=== PATIENT | female | born 1950 | race Caucasian/White ===

== ENCOUNTER 2023-04-16 09:08 | Inpatient (IN) | payer MEDICARE ==
[~2023-04-16] VITALS: Ht 167.6 cm; Wt 92.1 kg
[2023-04-16 10:02] LABS: HEMATOCRIT 31.2 % (35.0-50.0); HEMOGLOBIN 10.2 g/dL (12.0-18.0); MCH 31.3 (27-36); MCHC 32.6 g/dl (30-36); PLATELET COUNT 372 K/uL (140-440); RBC 3.25 M/ul (4.3-5.7); RDW 15.3 (10.5-15.0)
[2023-04-16 10:12] LABS: INR 0.96 (0.80-1.30); PROTIME 12.4 Sec (11.2-14.2)
[2023-04-16 10:14] LABS: PARTIAL THROMBOPLASTIN TIME 23.3 Sec (22.9-41.3)
[2023-04-16 10:16] LABS: ALBUMIN 1.8 g/dL (3.4-5.0); ALBUMIN/GLOBULIN RATIO 0.46 (1.1-2.4); ANION GAP 11.7 (7-21); BILIRUBIN, TOTAL 0.3 ng/dL (0.2-1.0); CALCIUM 8.4 mg/dL (8.5-10.1); POTASSIUM 3.7 mmol/L (3.5-5.1); PROTEIN, TOTAL 5.7 g/dL (6.4-8.2)
[2023-04-16] MEDS ORDERED: TYLENOL325 MG PO (10:22)
[2023-04-16] MEDS ORDERED: PROBIOTIC GOLD1 EACH PO (10:23)
[2023-04-16] MEDS ORDERED: ADULT ASPIRIN R81 MG PO (10:23)
[2023-04-16] MEDS ORDERED: BUPRENORPHINE HC2 MG SL (10:24)
[2023-04-16] MEDS ORDERED: BUSPIRONE HCL15 MG PO (10:25)
[2023-04-16 10:26] LABS: LYMPHOCYTES, MANUAL DIFF 34; MONOCYTES, MANUAL DIFF 2; NEUTROPHILS, MANUAL DIFF 64
[2023-04-16] MEDS ORDERED: FAMOTIDINE20 MG PO (10:26)
[2023-04-16] MEDS ORDERED: CHLORTHALIDONE25 MG PO (10:26)
[2023-04-16] MEDS ORDERED: DULOXETINE HCL60 MG PO (10:26)
[2023-04-16] MEDS ORDERED: HUMALOG KW200 UNIT/1 SUB-Q (10:27)
[2023-04-16] MEDS ORDERED: FEOSOL325 MG PO (10:27)
[2023-04-16] MEDS ORDERED: HYDROXYZINE HCL25 MG PO (10:28)
[2023-04-16] MEDS ORDERED: REZVOGLAR100 UNIT/1 SUB-Q (10:29)
[2023-04-16] MEDS ORDERED: LEVOTHYROXINE50 MC1 (10:29)
[2023-04-16] MEDS ORDERED: COZAAR100 MG PO (10:30)
[2023-04-16] MEDS ORDERED: MIRAPEX0.25 MG PO (10:31)
[2023-04-16] MEDS ORDERED: METOPROLOL TART25 MG PO (10:31)
[2023-04-16] MEDS ORDERED: LYRICA50 MG PO (10:32)
[2023-04-16] MEDS ORDERED: CRESTOR10 MG PO (10:32)
[2023-04-16] MEDS ORDERED: PREDNISONE20 MG PO (10:33)
[2023-04-16 10:44] LABS: ABO B; ANTIBODY SCREEN NEGATIVE; RH POSITIVE
--- OUTSIDE RECORDS SUMMARY | 2023-04-16 11:04 | XMS ---
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 EXiang VISIT COUNT (12 MO.) 2 Koby Michael ([facility]) [address] [facility] [facility] TOTAL 3 NOTE: Visits indicate total known visits. ED/UCC VISIT TRACKING (12 MO.) 04/16/2023 09:09 KATIE Francois TYPE: Emergency COMPLAINT: - BLOODY STOOL 03/31/2023 23:33 Koby STEELE ([facility]) TYPE: Emergency DIAGNOSES: - Disorder of kidney and ureter, unspecified - Other cystitis without hematuria - Sepsis, unspecified organism - Abdominal pain - Back Pain 03/31/2023 16:11 Koby [place] ([facility]) TYPE: Emergency DIAGNOSES: - Wedge compression fracture of T5-T6 vertebra, initial encounter for closed fracture - Back Pain - Fall - Fall; Back Pain INPATIENT VISIT TRACKING (12 MO.) 03/31/2023 23:33 Koby [facility]ON [place] ([facility]) TYPE: Inpatient DIAGNOSES: - Acute cystitis without hematuria - Adjustment disorder with mixed anxiety and depressed mood - Disorder of kidney and ureter, unspecified - Local infection of the skin and subcutaneous tissue, unspecified - Localized edema - Low back pain, unspecified - Other cystitis without hematuria - Restless legs syndrome - Sepsis, unspecified organism - Unspecified mononeuropathy of bilateral lower limbs 07/22/2022 06:48 [facility] TYPE: Gynecology DIAGNOSES: - Intra-abdominal and pelvic swelling, mass and lump, unspecified site [id number]
[2023-04-16 13:35] VITALS: BP 162/63
--- NOTE | 2023-04-16 14:20 | NUR ---
In to assess patient, resting with eyes closed. Respirations even and unlabored. Allowed to rest. Will return to complete assessment at a later time.
--- NOTE | 2023-04-16 16:10 | NUR ---
Pt resting, eyes closed. no s/sx distress on room airIVF infusing, pure wick in place. LE elevated. Barrett just got here from [place].
[2023-04-16 16:18] LABS: HEMATOCRIT 28.1 % (35.0-50.0); HEMOGLOBIN 9.2 g/dL (12.0-18.0); MCH 31.2 (27-36); MCHC 32.6 g/dl (30-36); MCV 95.6 fl (81-99); PLATELET COUNT 322 K/uL (140-440); RBC 2.94 M/ul (4.3-5.7); RDW 15.2 (10.5-15.0)
[2023-04-16 16:37] LABS: BANDS, MANUAL DIFF 12; LYMPHOCYTES, MANUAL DIFF 45; MONOCYTES, MANUAL DIFF 6; NEUTROPHILS, MANUAL DIFF 37
[2023-04-16] MEDS ORDERED: LEVOTHYROXINE50 MCG PO (16:44)
[2023-04-16] MEDS ORDERED: TM-VITE RX T1000 MCG PO (17:02)
[2023-04-16] MEDS ORDERED: CALCIUM 600+D31 EACH PO (17:05)
[2023-04-16] MEDS ORDERED: VITAMIN D21250 MCG PO (17:08)
[2023-04-16] MEDS ORDERED: MAGNESIUM250 M1 PO (17:20)
[2023-04-16] MEDS ORDERED: MILK OF MA400 MG/5 M PO (17:21)
[2023-04-16] MEDS ORDERED: FLEET ENEMA133 ML PR (17:22)
--- NOTE | 2023-04-16 17:25 | NUR ---
medications reconciled using pharmacy records and med list from facility
[2023-04-16 17:39] VITALS: BP 129/66
--- NOTE | 2023-04-16 18:11 | NUR ---
pt more awake, eating, cooperativew with vitals and repositioning in bed. pure wick in place, draining light nathan colored urine. attends in place. echymotic pale looking areas and edema to R hand improved. edema to fingers and L hand still present, lightly dusky colore, much improved. duskiness of knee areas no changes, No changes to edema of LE/pale dusky open areas with scant amount of ss drainage covered with abd earlier, no changes. blue foam dressing from admit not removed. pale edematous toes and scabbed tip of toes no changes. elevated. scabbed area L elbow, no changes. no c/o pain. CBG 100 no coverage needed. IVF infusing w/o problems
[2023-04-16 18:43] VITALS: BP 129/66
--- NOTE | 2023-04-16 19:30 | NUR ---
SHIFT REPORT RECEIVED FROM SHLEBIE AT BEDSIDE, pt INCONTINENT OF BLOODY STOOL-STOOL SAMPLE RECOLLECTED ADN RESENT TO LAB FOR ORDERED C-DIFF ORDER. YUNIOR CARE DONE AND NEW ATTENDS IN PLACE WITH NEW JANETHWICK. BLE ELEVATED IN BED. IV SITE WNL, FLUIDS INFUSING WNL. NO ADDITIONAL NEEDS OR COCNERNS VERBALIZED. WOUNDS NOTED TO BLE, PHOTOS ALREADY IN CHART PER REPORT.
--- NOTE | 2023-04-16 22:10 | NUR ---
son garcia called and asked for pt updated. updated provided and pt made aware of son calling.
[2023-04-16 22:25] VITALS: BP 140/67
--- NOTE | 2023-04-16 22:30 | NUR ---
ASSESSMENT COMPLETE, LUNG SOUNDS CLEAR. pt DENIES DIZZINESS/LIGHTHEADEDNESS. VSS, IV SITE TO RIGHT AC WNL-BRISK BLOOD RETURN NOTED. DRESSINGS TO BLE ALREADY IN PLACE, APPEARS TO BE PACKED WITH GAUZE WITH BLUE FOAM ON TOP OF DRESSING-UNABLE TO REMOVE FOAM DRESSING (OPTILOCK) ADHERED TO SKIN- UNABLE TO REMOVE- ADVERTISING AGENCY MANAGER CHET IN ROOM ( SECOND RN) TO ASSESS. DAYSHIFT RN SHELBIE REINFORCED DRESSING W/ ABD PAD. WOUND CONSULT ALREADY IN PLACE, DISCUSSED WITH ADVERTISING AGENCY MANAGER. CLINICAL JUDGMENT, TO LEAVE DRESSING IN PLACE AND HAVE WOUND CARE ASSESS WOUND BED AND PLACE WOUND CARE ORDERS TOMORROW. PHOTOS ALREADY IN CHART. BRUISES NOTED TO LEFT HIP ALONG WITH DEPENDENT EDEMA. DEPENDENT EDEMA TO BILATERAL HANDS AND FEET. LEFT HAND AND BILATERAL FEET ELEVATED IN BED. ABRASION ALSO NOTED TO LEFT ELBOW-NO DRAINAGE NOTED-END POLISHER. OLD CENTRAL LINE DRESSING TO RIGHT NECK C/D/I-TO REMOVE TOMORROW ON DAYSHIFT.
--- NOTE | 2023-04-16 23:59 | NUR ---
22G IV PLACED IN LAC WITH 3 ATTEMPTS. PT TOLERATED WELL. PRIMARY RN NATHAN IN ROOM AT THIS TIME.
[2023-04-17] VITALS (8 sets, daily range): BP systolic 122–137; BP diastolic 65–81
--- NOTE | 2023-04-17 00:01 | NUR ---
PT INCONTIENT OF BLOODY STOOL, YUNIOR CARE DONE AND NEW PUREWICK IN PLACE. LIANA PERALES IN ROOM TO ATTEMPT TO START SECOND IV pt HERE FOR GI BLEED. CALL LIGHT IN REACH, BED IN LOW POSITION.
--- NOTE | 2023-04-17 03:10 | NUR ---
in room for vs and i&o's, pt incontinent of small amount bloody stool. this rn and insulation cupola charger julio in room and cmopleted sammi care and new purewick in place. pt boosted in bed, hob elevated fro comfort. vss, pt deneis dizziness, lightheadedness. iv sites x2 remains wnl, iv fluids infusing as directed. fresh ice water and warm blankets given per pt request. pt verbalizes attempting to void via purewick, will provide pt privacy. call light in reach.
--- NOTE | 2023-04-17 05:30 | NUR ---
prn nausea medication given-see emar. lab in room for am blood draw. iv sites x2 remains wnl, iv fluids infusing as directed.
[2023-04-17 05:52] LABS: HEMATOCRIT 25.1 % (35.0-50.0); HEMOGLOBIN 8.1 g/dL (12.0-18.0); MCH 30.9 (27-36); MCHC 32.3 g/dl (30-36); MCV 95.8 fl (81-99); PLATELET COUNT 290 K/uL (140-440); RBC 2.62 M/ul (4.3-5.7)
[2023-04-17 06:12] LABS: ALBUMIN 1.4 g/dL (3.4-5.0); ALBUMIN/GLOBULIN RATIO 0.44 (1.1-2.4); ANION GAP 11.1 (7-21); BILIRUBIN, TOTAL 0.3 ng/dL (0.2-1.0); BUN/CREATININE RATIO 30.95 (6.0-28.6); CALCIUM 7.6 mg/dL (8.5-10.1); CREATININE, SERUM 0.84 mg/dL (0.55-1.02); MAGNESIUM 1.9 mg/dL (1.8-2.4); PHOSPHORUS, INORGANIC 3.7 mg/dL (2.5-4.9); POTASSIUM 4.1 mmol/L (3.5-5.1); PROTEIN, TOTAL 4.6 g/dL (6.4-8.2)
[2023-04-17 06:57] LABS: BANDS, MANUAL DIFF 15; BASOPHILS, MANUAL DIFF 1; EOSINOPHILS, MANUAL DIFF 2; LYMPHOCYTES, MANUAL DIFF 24; MONOCYTES, MANUAL DIFF 4; NEUTROPHILS, MANUAL DIFF 54
--- NOTE | 2023-04-17 08:31 | NUR ---
pt alert and orineted, much imrpoved skin color, pinkish, still pale tip s and back of fingers, bilat. edema to L fingers. allevyn dressing applied to L elbow area, scabbed over area, increaed redness compared to yesterdat. Dressing to R former IJ place removed. decreased duskiness knees and below knees area. pale and edematous LE 2+, poor capillary refill, no skin changes to toe coloring. elevated. mid calves abd in place, ss drainage present. has a wound consult. pure wick inplace. CBG 92, no SS coverage needed. IVF infusing RAC, SL LA patent. repositioned and tuirned in bed, am and sammi care done. cooperative. Eating at thist mahnaz, no c/o pain
--- NOTE | 2023-04-17 10:00 | NUR ---
PT MEDICATED WITH TYLENOL PER 11/06 LE PAIN. [facility]IOT WOUND CARE NURSE DOING ASSESSMENTS AND TREATMENT OF LE.
--- NOTE | 2023-04-17 10:32 | NUR ---
PATIENT ALERT AND ORIENTED, SITTING UP IN BED. STATES SHE WAS AT [facility] PRIOR TO ADMISSION. STATES SHE HADN'T HAD ANYTHING DONE THERE. PREVIOUSLY, SHE LIVED IN [place], IN A 2 STORY HOME WITH HER , DEBRA. HER AVBHEPNS-DJ-BFO STOPS IN OCCASIONALLY TO HELP HER AND HER . STATES HER STAIRS ARE "ELECTRIC" SO SHE HAS NO ISSUES USING THEM. HAS A WALKER ON BOTH FLOORS AT HOME AND A SHOWER CHAIR. SHE DOES NOT DRIVE, HER SPOUSE PROVIDES HER WITH TRANSPORTATION. NO FINANCIAL ISSUES OF NOTE. DENIES NEEDS AT HOME AT THIS TIME. INSTRUCTED TO NOTIFY STAFF IF NEEDS ARISE. VERBALIZES UNDERSTANDING.
--- NOTE | 2023-04-17 10:33 | NUR ---
ROUNDS. PT GONE FOR PROCEDURE. PROVIDED PRAYER.
--- NOTE | 2023-04-17 10:48 | NUR ---
LE 0925: THIS RN GOES DOWN TO MED SURG ROOM 109 FOR A WOUND CONSULTS OF BLE AND THE LEFT ELBOW. THE PT REPORTS THAT SHE HAS HAD THE WOUNDS ON HER BLE FOR MONTHS AND THAT THEY WERE PREVIOUSLY TREATED AT [facility]. THE ONLY THING SHE COULD TELL THIS RN ABOUT HER PREIVOUS DRESSINGS IS THAT THEY "DIDN'T STICK" ANYTIME ADHEISVE WAS USED IT WOULD "TAKE HER SKIN OFF." THERE IS A FOUL ODOR COMING FROM THE WOUNDS ON HER BLE. THE DRESSINGS ARE SOMEWHAT STUCK TO HER SKIN AND REQUIRE THE USE OF NORMAL SALINE TO LOOSEN THE ABD PADS OFF HER SKIN ON BLE WOUNDS. WOUND CLEANSER AND DRY GAUZE ARE INITIALLY USED TO CLEAN THE WOUNDS, BUT THIS IS TOLERATED VERY POORLY BY THE PATIENT. THIS RN SWITCHES TO A DEBRISOFT LOLLY TO CLEAN THE AREAS, WHICH PROVES TO BE BETTER IN CLEANING THE AREA AND SLIGHTLY LESS PAINFUL. THE ODOR REMAINS EVEN AFTER CLEANING. PHOTOS AND MEASUREMENTS ARE TAKEN (SEE COMPLEX WOUND ASSESSMENT FOR MORE DETAILS). THE PT REPORTS THAT HER WOUNDS ARE VASCULAR WOUNDS, HOWEVER, THEY ARE MORE CHARACTERISTIC OF LACERATIONS WITH HOW UNIFORM AND LINEAR THEY ARE. RLE LATERAL CALF WOUND: DRESSED WITH HYDROFERA BLUE, AQUACEL AG STRIP, OPTILOCKS, ALL SECURED IN PLACE WITH GAUZE AND TAPE. EDGES HAVE 5% SLOUGH TISSUE AND 5% NECROTIC TISSUE, THE REMAINDER IS RED. RLE MEDIAL CALF WOUND: DRESSED WITH HYDROFERA BLUE, AQUACEL AG STRIP, IODOSORBS ON NECROTIC EDGES, OPTILOCKS, SECURED IN PLACE WITH GAUZE AND TAPE. EDGES HAVE 50% NECROTIC TISSUE, 40% SLOUGH TISSUE, 10% RED/ERRYTHEMA. LLE MEDIAL CALF WOUND: DRESSED WITH HYDROFERAB LUE, AQUACEL AG STRIP, OPTILOCKS, SECURED IN PLACE WITH GAUZE AND TAPE. LEFT ELBOW IS SCABBED OVER. PLACED A GENTLE BORDER OVER THE AREA TO PROTECT IT. THIS PT WOULD GREATLY BENEFIT FROM A SURGICAL CONSULT OF THE RLE MEDIAL CALF WOUND. MED/SURG ASKED TO PUT THE CONSULT IN. THIS RN DISCUSSES THE PT WITH DR. VELASQUEZ, HE IS AGREEABLE TO SEE HER. CULTURE OF THE LLE WOUND IS TAKEN AT 1000. LE 1020: CONSULT IS COMPLETED.
--- NOTE | 2023-04-17 10:58 | NUR ---
CHART FAXED TO [facility] FOR UPDATE OF PATIENT CONDITION.
--- NOTE | 2023-04-17 10:59 | NUR ---
Review: 04/17/2023: [facility] [place] for admission 04/16/2023, pt meets inpatient criteria for Guideline - Gastrointestinal Bleeding, Lower. GL day 1 met on 04/16/2023.
--- NOTE | 2023-04-17 11:16 | NUR ---
ROUNDS. PT APPEARED TO BE SLEEPING. DID NOT DISTURB; PROVIDED SILENT PRAYER; LEFT GUIDEPOST WITH PRAYER CARD AND CONTACT CARD.
--- NOTE | 2023-04-17 11:38 | NUR ---
DR VELASQUEZ ASSESSING PT.
--- NOTE | 2023-04-17 13:21 | NUR ---
awake, no requests, hob elevated. IVF infusing. LE dressing in place, elevated
--- NOTE | 2023-04-17 13:26 | NUR ---
Checked on patient due to instrument repairer for nutrition. Patient states her appetite was not great prior to admission. She states now she can only have water. Surgery likely. It is noted that patient has lower extremity wounds and uses insulin for her diabetes. Patient came from [facility] where she went after her admission at [facility] for a UTI and wound care for her legs. Normally lives at home with . Will continue to monitor patient's nutrition needs while here.
--- NOTE | 2023-04-17 13:48 | NUR ---
OT/PT inroom evaluating pt. Pt had another liquid bm. skin care done. edema and brusing L abd no changes. dresing LE in place, decreaed edema to L hand and LE, Mottled /marbled skin looking hands and LE, pale toes, no chagnes from earlier
--- NOTE | 2023-04-17 15:20 | NUR ---
Sleeping, no distress, IVF infusing. LE elevated, Foot craddle in place. dressing no changes. skin coloring no changes from earlier assessment. pure wick in place
--- NOTE | 2023-04-17 17:31 | NUR ---
Pt currently awake, was talking in phone with . on room air, IVF infusing, 2 IV sites. abd bruised and edematous L side. dusky and mottled hands present, edema to L hand and fingers. edema and mottled legs but better than when admitted LE, pale LE, dressing in place, elevated, edema to feet and toes, plantar area toes bruised, pale, poor circulation. not as tender as before, weak pulses 3+ pitting edema. Pt on clear liquids, tolerating well. CBG 218 at this time, pt aware of NPO after midnight for am I&D with Dr Brush. both and son Narendra were informed of changes when they called pt. Pt had one loose liquid thick wine colored bm. skin care, clean attend. OT/PT worked with pt, see previous notes. tolerated fair. Was medicated X1 with Tylenol
--- NOTE | 2023-04-17 19:08 | NUR ---
BEDSIDE REPORT RECEIVED SHELBIE RN, PT RESTING QUIETLY WITH EYES COVERED, WAVES AT NURSES, SKIN ASSESSMENT WITH SHELBIE RN DONE, PT WITHOUT REQUESTS AT THIS TIME.
--- NOTE | 2023-04-17 20:00 | NUR ---
PT ASSISTED WITH TELEPHONE CALL FROM HER SON.
--- NOTE | 2023-04-17 20:10 | NUR ---
son valencia called and asked if pt was warm enough, stating, "hi i called about an hour and a half ago and tried talking to my mother but she said she was too cold to chat. is she running a fever?". son reassured pt is afebrile and transferred to pt room to talk to pt per son request, primary rn in room. this rn also in room and verified pt felt warm enough, denied needs for additional blankets and/or adjustment to room temp. call light in reach.
--- NOTE | 2023-04-17 20:42 | NUR ---
primary rn request this rn's assistance in calling back for pt. this rn in room and pt found resting in bed with eyes closed, on ra. rr even and unlabored, snorning noted. pt allowed to rest, this rn called back pt's and provided with pt update. per mai request, pt allowed to rest and did not awaken pt. per mai, "can you just tell her if she needs me she can call me". primary rn notified.
--- NOTE | 2023-04-17 21:10 | NUR ---
TC RECEIVED FROM DR HUERTA RN RECEIVED ORDER FOR ACCUCHECKS TO BE CHANGED TO Q6 HOURS WITH SS PREVIOUSLY ORDERED, ORDERS CLARIFIED AND ENTERED.
--- NOTE | 2023-04-17 22:30 | NUR ---
PT AWAKE AND ALERT, PT NOTED TO HAVE HAD STOOL, DARK RED BROWNISH LIQUID STOOL, PERICARE GIVEN, PURE WICK WITH BLOODY STOOL ON IT, THIS IS PROBABLY CAUSING THE DARK BROWNISH RED URINE IN CANNISTER OF PURE WICK, NEW PURE WICK, CHUX AND ATTENDS PLACED, PT REPOSITIONED TO LEFT SIDE, LEGS ELEVATED ON PILLOW, LEFT HAND ELEVATED ON PILLOW, FOOT CRADLE IN PLACE, ASSESSMENT COMPLETED, SL IN LEFT AC FLUSHES WELL, IVF PER RIGHT AC, SITE INTACT, LR AT 100ML/HR IS INFUSING WELL. ABOVE STOOL LARGE. WARM BLANKET GIVEN, PT DESIRES TOWEL OVER HEAD, HOB SLIGHT ELEVATED, SIDE RAILS UP X 4, CALL LIGHT IN REACH.
--- NOTE | 2023-04-17 23:30 | NUR ---
PT RESTING WITH EYES CLOSED, RESP EVEN AND REG, IVF INFUSING WELL.
[2023-04-18] VITALS (17 sets, daily range): BP systolic 42–123; BP diastolic 32–101
--- NOTE | 2023-04-18 00:04 | NUR ---
PT MADE NPO FOR AM PROCEDURE, PT WITHOUT REQUESTS AT THIS TIME, RESP EVEN AND REG.
--- NOTE | 2023-04-18 00:44 | NUR ---
DR HUERTA TO DEPARTMENT, UPDATED ON PT'S EARILIER LARGE DARK RED BROWNISH LIQUID STOOL, GAVE VO FOR CBC NOW AND IN AM, ORDERS ENTERED.
--- NOTE | 2023-04-18 01:00 | NUR ---
LAB IN TO DRAW STAT CBC, DIFFICULT DRAW BUT OBTAINED ON 3RD TRY PER LAB PERSONEL.
[2023-04-18 01:10] LABS: HEMATOCRIT 21.1 % (35.0-50.0); HEMOGLOBIN 6.9 g/dL (12.0-18.0); MCHC 32.6 g/dl (30-36); PLATELET COUNT 284 K/uL (140-440); RBC 2.22 M/ul (4.3-5.7); RDW 14.7 (10.5-15.0)
[2023-04-18 01:37] LABS: LYMPHOCYTES, MANUAL DIFF 19; MONOCYTES, MANUAL DIFF 5; NEUTROPHILS, MANUAL DIFF 76
--- NOTE | 2023-04-18 01:40 | NUR ---
ADDITION TO PREVIOUS NOTE, ABDOMIN DISTENDED BUT SOFT, NON TENDER TO PATIENT.
--- NOTE | 2023-04-18 01:40 | NUR ---
PT ASLEEP, RESP EVEN AND REG, AWAKEN FOR VS AND ACCUCHECK, PT STATES SHE IS SO TIRED AND WANTS TO SLEEP, VS DONE AND STABLE, ACCUCHECK 123. ATTENDS CHECKED AND NO STOOL OR BLOOD NOTED. PT COVERED WITH BLANKETS AND BACK TO SLEEP.
--- NOTE | 2023-04-18 02:35 | NUR ---
RN NOTED BRIGHT RED BLOOD COMING UP PURE WICK, REQUEST NATHAN RN TO COME TO ROOM TO ASSIST WITH CHECKING ATTENDS, PT C/O RECTAL PAIN, ABDOMEN REMAINS DISTENDED AND SOFT, PT STATES ONLY RECTAL PAIN, PT TURNED TO LEFT SIDE, PASSAGE OF CLOTS OF BRIGHT RED BLOOD, UPON CLEANSING RECTUM NOTED TRICKLE OF BRIGHT RED BLOOD.
--- NOTE | 2023-04-18 02:50 | NUR ---
REQUEST CHARGE NURSE NATHAN RN TO CALL SUPERVISIOR TO ASSIST WITH ASSESSMENT OF PATIENTS RECTAL BLEEDING, PT NOW HAS A CONTINUAL TRICKLE OF BRIGHT RED BLOOD FROM RECTUM WITH RECTAL PRESSURE AFTER CLOTS CAME OUT, PT C/O PAIN FROM RECTUM, MOANING WITH PAIN OFF AND ON, PT ASKED IF SHE WOULD LIKE THIS RN TO CALL HER AND SHE SAID "NO HE WILL JUST STRESS OUT".
--- NOTE | 2023-04-18 02:52 | NUR ---
FIRST UNIT OF PRBC RELEASED FROM LAB TO GUMARO GAINES, IN PROCESS OF BEING CHECKED BY TWO RNS.
--- NOTE | 2023-04-18 02:59 | NUR ---
REQUESTED DR HUERTA COME TO ROOM FOR BLEEDING AND PAIN IN RECTUM. MD CALLED PER NATHAN GAINES,
--- NOTE | 2023-04-18 02:59 | NUR ---
DR HUERTA CALLED REGARDING BRIGHT RED TRICKLE OF CONSISTENT RECTAL BLEEDING, CABLE DISPATCHER CALLED AND IN ROOM ALONG WITH HOUSE FLOAT-IN ROOM OBTAINING VS. BLOODY STOOL EARLIER IN SHIFT DARK RED IN COLOR AND LIQUID/GELATINOUS IN CONSISTENCY. DR HUERTA SOON AFTER TO pt ROOM, AT APPROX 0302 AND VERBAL ORDER READ BACK TO ORDER CROSSMATCH ON ANOTHER UNIT PRBC'S, THIS RN TO PLACE ORDER AND LAB ALSO MADE AWARE. PRIMARY RN ANALI PRIMING AND PREPARING THE ALREADY ORDERED UNIT PRBC'S. pt TO BE TRANSFERRED TO CCU FOR CLOSER OBSERVATION, SEE NOTES FROM PRIMARY RN ANALI FOR DETAILS REGARDING EVENT AND TRANSFER.
--- NOTE | 2023-04-18 03:02 | NUR ---
DR HUERTA ARRIVED TO ROOM, UPDATE GIVEN, MD REQUESTS PT BE TRANSFERED TO CCU, SUPERVISIOR AWARE.
--- NOTE | 2023-04-18 03:05 | NUR ---
DISCUSSED WITH PT ORDER TO TRANSFUSE PRBC DUE TO RECTAL BLEEDING AND DECREASING H/H (6.9/21.1).
--- NOTE | 2023-04-18 03:10 | NUR ---
PRBC STARTED PER ORDER, INFUSING 75-120ML OVER 15MINUTES PER RIGHT AC IV, SITE PATENT, LR IVF TURNED OFF AT THIS TIME. VS COMPLETED. SUPPORT TO PT. HOB LOWERED TO FLAT POSITION.
--- NOTE | 2023-04-18 03:25 | NUR ---
15 MINUTES COMPLETE, NO SIGNS OF REACTION, RATE INCREASED TO 300ML/HR, PREPARING FOR TRANSFER TO CCU, DISCUSSED WITH PT NEED TO GO TO CCU FOR FURTHER CARES.
--- NOTE | 2023-04-18 03:35 | NUR ---
PT TRANSFERED TO CCU RM 127, REPORT GIVEN TO KAY GAINES WHILE OTHER RNS SETTLE HER INTO HER ROOM, PT MOANING IN PAIN OFF AND ON, REMAINS ALERT. BELONGINGS TO ROOM, HEARING AIDES AT BEDSIDE IN MOID MIDDLE SCHOOL TEACHER.
--- NOTE | 2023-04-18 03:35 | NUR ---
PT BROUGHT OVER FROM MED SURG FOR GI BLEED, REPORT RECEIVED FROM ANALI GAINES. PT IS AWAKE AND ALERT, ANSWERING ORIENTATION QUESTIONS APPROPRIATELY. SHE IS MOANING QUITE A BIT AND C/O RECTAL PAIN. PT ARRIVES WITH ONE UNIT OF PRBCS INFUSING. PER UTILITY SPRAY OPERATOR, PT HAS BLOOD DISCHARGE FROM RECTUM THAT STILL NEEDS TO BE CLEANED UP. PT PLACED ON BLAST FURNACE CHECKER, WILL ATTTEMPT TO PUT IN ANOTHER IV SITE.
--- NOTE | 2023-04-18 03:45 | NUR ---
IN TO TURN PT AND CLEAN HER UP WELL ASSESS RECTAL BLEEDING, PT IS VERY PAINFUL IN RECTUM, RATING PAIN 9/10. PT TURNED ONTO LEFT SIDE, SEVERAL BLOOD CLOTS COMING FROM RECTUM WITH CONTINUED SEEPING OF BLOOD OUT OF RECTUM WELL. CALL TO HOSPITALIST TO COME DOWN AND ASSESS, DR HUERTA CAME INTO ROOM AND SHOWN BLOOD CLOTS, MORE VERY LARGE BLOOD CLOTS WERE SUDDENLY EXPELLED FROM RECTUM ALONG WITH PT MOAING OUT IN MUCH PAIN. DICER OPERATOR PRESENT WELL. CALL TO DR VELASQUEZ PER DR HUERTA TO COME IN AND EVALUATE PT FOR POSS EMERGENT SCOPE. PT CONTINUED TO MOAN IN PAIN AND ASKING FOR PAIN MEDICATION, DR HUERTA EXPLAINED TO PT THE RISKS OF PAIN MEDICATION WHEN HER BP'S WERE LOW WITH ACTIVE BLEEDING, PT THEN STATES "I'M DONE, LET ME GO". PT REITERATED HER DESIRE FOR NO TREATMENT OTHER THAN BEING MADE COMFORTABLE TO THIS RN WELL THE OTHER RNS THAT WERE ASSISTING IN CARE AND DR HUERTA AND DR VELASQUEZ. SHE REMAINS ALERT AND ORIENTED AND VERY SURE THAT SHE DOES NOT WANT ANY FURTHER TREATMENT AT THIS TIME.
--- NOTE | 2023-04-18 04:10 | NUR ---
FIRST UNIT OF PRBCS INFUSED AND SECOND UNIT STARTED, BLOOD HAS BEEN GOING IN AT 999/ML PER MED ORDER. DR VELASQUEZ HAS ARRIVED, PT TURNED OVER SO HE COULD EXAMINE HER AND MORE VERY LARGE BLOOD CLOTS WITH ACTIVE BLEEDING NOTED. PT CONTINUES TO REFUSE ANY KIND OF TREATMENT. APPEARS TO BE IN A LOT OF PAIN, MOAINING AND YELLING OUT AT TIMES.
--- NOTE | 2023-04-18 04:13 | NUR ---
PT GIVEN 0.5MG IV DILAUDID FOR 10/[address] HUERTA, VS WNL AT THIS TIME.
--- NOTE | 2023-04-18 04:50 | NUR ---
GOAL OF CARE IS NOW TO MAKE PT COMFORTABLE PER BOTH DOCTORS AND PT. SHE HAS BEEN GIVEN A TOTAL OF 3 MG IV DILAUDID OVER THE LAST 40 MINUTES WITH VERY LITTLE PAIN RELIEF, PT STILL MOANING QUITE FREQUENTLY AND YELLING OUT "HELP ME" AT TIMES. WILL TRY FENTANYL- 100MCG IV FENTANYL GIVEN AT 0505.
[2023-04-18 05:05] LABS: ABO B; RH POSITIVE
--- NOTE | 2023-04-18 05:15 | NUR ---
PT STILL VERY TENSE AND MOANING EVERY MINUTE OR SO, 1MG IV ATIVAN GIVEN.
--- NOTE | 2023-04-18 05:45 | NUR ---
AFTER ATIVAN WAS GIVEN PT DID GO INTO A DEEPER SLEEP AND SEEMS MORE RELAXED, ALTHOUGH SHE DOES FREQUENTLY CONTINUE TO MOAN IN HER SLEEP AND OCCASIONALLY TRY TO YELL OUT. FENTANYL DRIP HAS ARRIVED FROM [facility] TECHNICIAN, WILL START AT 100MCG/HR.
--- NOTE | 2023-04-18 06:13 | NUR ---
PT HAS NOW HAD FENTANYL DRIP INFUSING AT 100MCG/HR FOR 30 MINUTES NOW, SHE IS SNORING, MAINTAINING O2 SATS 98%, HR 100'S. SHE DOES STILL HAVE PERIODS, APPROX 3 TIMES A MINUTE, IN WHICH SHE IS MOANING OUT. FENTANYL DRIP TURNED UP TO 150MCG/HR.
--- NOTE | 2023-04-18 08:18 | NUR ---
BEDSIDE REPORT REC'D FROM KAY AND PLAN OF CARE CONTINUES. PT IS NOW ON COMFORT CARE, ON A FENTANYL GTT AT 100 MCG/HR. PT IS RESTING MORE COMFORTABLY PER REPORT AFTER FENTANYL GTT WAS INITIATED. PT HAS 2 L OXYMASK FOR COMFORT AT THIS TIME. PT AWAKENS BRIEFLY BUT DOES NOT ANSWER QUESTIONS OR INTERACTS MUCH. PT CAN BE HEARD INTERMITTENLY MOANING IN PAIN AND SAYING "OWIE" AND "OUCH." DR. HUERTA IN UNIT AT THIS TIME AND GIVEN AN UPDATE. PT NOTED TO BE MOTTLED AND COOL FROM FEET UP TO MID ABDOMEN. PT REMAINS IN SINUS RHYTHM, 90s. LAST BP 79/57 (65). PT'S CHUX AND ATTENDS WERE CHANGED LAST AT 0650 AND A LARGE AMOUNT OF BLOOD WAS NOTED - THIS WAS WEIGHED BY KAY AND NOTED TO BE 700 ML. WILL CONTINUE TO MONITOR CLOSELY AND PROVIDE COMFORT MEASURES. NO FAMILY IN ROOM PRESENTLY.
--- NOTE | 2023-04-18 09:21 | NUR ---
BOTH PATIENT'S DEBRA AND HER DAUGHTER JEANNE HAVE CALLED THIS AM AND WERE GIVEN AN UPDATE FROM THIS RN. BOTH STATED THAT THEY PLANNED TO TRY AND MAKE IT IN TODAY TO SEE PATIENT. PT NOTED TO BE MOANING IN PAIN AND REACHING FOR HER ABDOMEN, GRIMACING IN THE FACE. FENTANYL TITRATED TO 100 MCG/HR. DR. HUERTA IN UNIT AND NOTIFIED. GOAL IS TO KEEP PATIENT COMFORTABLE.
--- NOTE | 2023-04-18 09:52 | NUR ---
PATIENT NOTED TO BE INCONTINENT OF URINE AND MORE LIQUID BLOOD. PT TURNED BACK AND FORTH, NEW CHUX AND ATTENDS PLACED UNDER HER, AND YUNIOR/RECTUM AREA CLEANED. MORE BRIGHT RED BLOOD MIXED WITH CLOTS WERE NOTED, WITH SOME PROTRUDING FROM HER RECTUM. CHUX AND WEIGHED ON SCALE AND NOTED TO BE 331 ML. ECCYMOSIS NOTED TO LOWER LEFT ABDOMINAL AREA THAT TRAVELS TO THE FLANK AREA ON LEFT SIDE, WELL AN INCREASE IN SWELLING NOTED TO LEFT UPPER THIGH AREA, GREATER THAN RIGHT SIDE. FENTANYL REMAINS INFUSING AT 100 MCG/HR. PT GROANS OUT AND SAYS "PLEASE DON'T" WHEN MOVING PATIENT, WELL "OUCH" WHEN MOVING SIDE TO SIDE. NEW GOWN AND WARM BLANKETS PLACED. WILL CONTINUE TO MONITOR.
--- NOTE | 2023-04-18 10:16 | NUR ---
STAFF ASKED IF I COULD COME SIT WITH AND PRAY WITH PT. PT HAD REFUSED ALL INTERVENTIONS LAST NIGHT AND DID NOT WANT SPIRITUAL DAWN TO COME AT THAT TIME. WHEN ASKED IF SHE WANTED THE SEWING MACHINE OPERATOR PLASTIC ZIPPER THIS MORNING SHE NODDED. SAT WITH PT FOR A WHILE. PRAYED AND PROVIDED PASTORAL PRESENCE. TOLD STAFF TO CALL ME IF NEEDED OR WHEN FAMILY ARRIVES.
[2023-04-18 10:47] LABS: C. DIFF TOXIN B GENE TCDB,PCR Not Detected (())
--- NOTE | 2023-04-18 11:00 | NUR ---
PATIENT CONTINUES ON FENTANYL GTT AT 100 MCG/HR. PT STILL HAVING SOME EPISODES OF MOANING/GROANING AND SEEMING TO BE UNCOMFORTABLE. RR ELEVATED. PT REMAINS ON 2 L OXYMASK FOR COMFORT. SKIN REMAINS MOTTLED, ALL THE WAY FROM HER FEET UP TO HER SHOULDERS. BRUISING STILL EVIDENT IN LEFT LOWER ABDOMEN AREA.
--- NOTE | 2023-04-18 11:30 | NUR ---
PATIENT'S DEBRA ARRIVES AND IS NOW AT BEDSIDE. BANDER HAND COMMERCIAL LINES ACCOUNT ASSISTANT IRINA CALLED. DEBRA PROVIDED WITH AN UPDATE AND ALSO BROUGHT HIM SOME COFFEE AND WATER. HELPING DEBRA USE THE PHONE IN THE ROOM TO CALL HIS DAUGHTER IN LAW AND HIS DAUGHTER, WHICH HE TELLS THEM NOT TO BOTHER COMING THIS WAY, HE CAN TELL SHE IS GOING TO PASS AWAY SOON.
--- NOTE | 2023-04-18 12:15 | NUR ---
PATIENT AT 1201 AND WAS PRONOUNCED BY DR. HUERTA AT THAT TIME. PT'S WAS IN ROOM WITH HER WHILE THIS HAPPENED. PROVIDING SUPPORT TO PATIENT'S BY NURSING STAFF. IRINA FROM [facility] CALLED AGAIN TO INFORM OF PATIENT'S PASSING. [employer] WORKING ON ARRANGEMENTS, WHICH PER DEBRA, HAVE ALL BEEN ARRANGED AT [facility] IN [place], [place]. [facility]ANY[facility] INFUSION D/C AT TIME OF .
--- NOTE | 2023-04-18 13:54 | NUR ---
I WAS CALLED WHEN PT . WAS IN THE ROOM WHEN I ARRIVED. TALKED WITH ABOUT PT LIFE. CONFIRMED HOME IN [facility]. PROVIDED PASTORAL CARE. HS CALLED HOME IN [facility].
--- NOTE | 2023-04-20 09:21 | NUR ---
DC summary sent to DENNIS NIELSEN.
--- NOTE | 2023-04-22 09:48 | CONS ---
[facility] [address], [place] [address] Signed DATE OF CONSULTATION: 04/17/2023 REQUESTING PHYSICIAN: Dr. Lester PROBLEM: Lower extremity wounds and presumed hematochezia. HISTORY OF PRESENT ILLNESS: This 73-year-old white woman has a complex past medical history, which is not easily distinguished. Most recently, she was residing at [facility]. She was transferred to the emergency room on April 16, 2023, yesterday. She had been hospitalized in [place], [place] but has received care in [place], [place] as well. Notes were reviewed from Dr. Huston, the emergency room physician, which described findings from the discharge summary from [facility] in [place], [place] at which point she had been admitted for cystitis for E coli and wound cultures positive for strep pyogenes and a wound culture of the lower extremities for Pseudomonas, having completed seven days of Levaquin antibiotic. Ultrasound had confirmed adequate perfusion of the lower extremities and pulses were not easily determined. Apparently. 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 She was also noted to have concurrent thrombocytopenia and thought likely to have had DIC. 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 The patient was noted to have dressings over both lower extremities. She tells me that she was in a wound care clinic arrangement in [place], [place]. The wounds were related to laceration she suffered from a car door slamming on her legs while in the [employer] parking lot in [place], [place]. This was in the fall she thinks. She is an unreliable historian to a degree, though does know some details of her situation. She was seen by wound care nursing team today and I was showing her photos which showed lacerations on the medial and lateral aspect of both lower extremities, both of which had some necrotic tissue in need of debridement. There is no sign of intense cellulitis associated with either wound and both were dressed and likely needing operative debridement, the greatest indication for surgical consultation at this time. As regard her apparent hematochezia, she has had blood per rectum mixed with stool and "maroon-colored stool." Notably, she is anemic. Her presentation hematocrit was 31.2, current hematocrit 25.1. I asked if she has had colonoscopy in the past and she does describe what sounds like a bowel prep, but no definite knowledge of colonoscopy proper. She has had no associated hematemesis. She does describe extensive operation undertaken in [place], [place], which sounds like a Electronically Signed By: BJ VELASQUEZ MD 04/22/23 0948 PATIENT NAME: YANELIS RAY CONSULTATION DATE OF : 48 REPORT #: [id number] PHYSICIAN: BJ VELASQUEZ MD PCP: OBIE ALVAREZ REPORT IS CONFIDENTIAL AND NOT TO BE RELEASED WITHOUT AUTHORIZATION [address] [address] Signed gynecologic malignancy by Dr. Robbins. Evaluation of physicians in the [place] area do show Dr. Robbins as a [employer] oncologist. She denies any colon resection proper. Review of her notes described prior surgical history of tonsillectomy and adenoidectomy, appendectomy and "partial hysterectomy." She describes Dr. Robbins having "taken out as much as I can" related to pelvic surgery, possibly malignant, though I am not certain. ALLERGIES: She does have allergies to sulfa medications, gabapentin causing agitation and trazodone causing hallucinations. MEDICATIONS: At [facility] have included Tylenol, a probiotic, aspirin, buprenorphine, buspirone, chlorthalidone, duloxetine, famotidine, iron sulfate, Humalog insulin, hydroxyzine, Synthroid, losartan, metoprolol, pramipexole (Mirapex), pregabalin (Lyrica), rosuvastatin and prednisone at an unknown dose. SOCIAL HISTORY: She is and has grown children. She lives in [place], [place] which is outside of [place]. 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 REVIEW OF SYSTEMS: She denies any shortness of breath or chest pain. She is having no dysphagia or dysuria. Has had no hematemesis. Denies abdominal pain currently. PHYSICAL EXAMINATION: GENERAL: This is a pleasant white woman who does not look systemically toxic at this time. VITAL SIGNS: Temperature is 97.8, pulse is 83, blood pressure 123/81, O2 saturation 97% on room air. CHEST: Clear to anterior examination. Pulse is regular. ABDOMEN: Nondistended, but is obese. There is a low midline incision which is well healed, certainly more than a few months. There is no associated hernia and she has no ascites. There is no palpable mass. EXTREMITIES: Show obesity and pedal edema on left and right side. Both feet are warm. Dressings are currently in place and recently changed by wound care nurses. I have reviewed the photos that were provided during the course of that wound evaluation. LABORATORY STUDIES: Current lab studies show a white count of 7.5, hematocrit 25.1, platelets 290,000. Chem profile shows sodium of 148, chloride of 112, glucose of 113, calcium 7.6 with albumin of only 1.4. Liver enzymes are otherwise normal. Creatinine is 0.84 and at presentation 1.0. Coag studies show a protime of 12.4 with an INR of 0.96, PTT 23.3. Serologic tests including C difficile are pending. Electronically Signed By: BJ VELASQUEZ MD 04/22/23 0948 PATIENT NAME: YANELIS RAY CONSULTATION DATE OF : 48 REPORT #: [id number] PHYSICIAN: BJ VELASQUEZ MD PCP: OBIE ALVAREZ REPORT IS CONFIDENTIAL AND NOT TO BE RELEASED WITHOUT AUTHORIZATION [facility] [address], [place] [address] Signed ASSESSMENT: 1. Leg wounds. I have reviewed the photos of the leg wounds and debridement of necrotic tissue would be appropriate. Wound VAC dressing changes may be most appropriate for expedient granulation and either closure or grafting of the wounds. She has eaten today and therefore would be ineligible for an anesthetic appropriate to the level of debridement required. We can consider to do this tomorrow (Thursday) as long as she is n.p.o. after midnight. 2. Hematochezia. It sounds as though she has had rectal bleeding. Her hematocrit would indicate that as well. She has no overt coagulopathy and although previously thrombocytopenic, currently has a platelet count of 372, now 290. Would avoid anticoagulants at this time and in particular anti-platelet agents. Review of her current medicines at admission showed no evidence of heparin administration or other medications that worse the platelet function in any way. Clear liquids can be allowed at this time and consideration for bowel prep undertaken possibly tomorrow. We will see if we can obtain any operative reports from Dr. Robbins at [facility] in [place] that may shed some light as to her possible underlying abdominal surgery and any evaluation of her colon that has been obtained in the past. The patient's is in [place] and given the extreme winter event currently underway, it is unlikely he will be here visiting her any time soon from [place]. MD DENNIS Amanda/ROSEMARIE /[id number] cc: Dr. Mavis Lester Copies: ~ Electronically Signed By: BJ VELASQUEZ MD 04/22/23 0948 PATIENT NAME: YANELIS RAY CONSULTATION DATE OF : 48 REPORT #: [id number] PHYSICIAN: BJ VELASQUEZ MD PCP: OBIE ALVAREZ REPORT IS CONFIDENTIAL AND NOT TO BE RELEASED WITHOUT AUTHORIZATION
--- NOTE | 2023-04-22 09:48 | CONS ---
[facility] [address], [place] [address] Signed DATE OF CONSULTATION: 04/18/2023 TIME: 4:30 a.m. ISSUE: Significant hematochezia. HISTORY OF PRESENT ILLNESS: This 73-year-old white woman was admitted by Dr. Mp Gamble and care assumed by Dr. Lester. I was consulted on her yesterday April 17, 2023 for bilateral lower extremity wounds for which debridement would be anticipated today. Debridement yesterday would have been undertaken, however, she had eaten and needed to be on an n.p.o. status for general anesthesia. She was additionally admitted for maroon stool previously identified and a lower hematocrit of approximately 21, having been admitted with a hematocrit of 31, though not seem to have copious bleeding at that time. A plan for bowel prep and colonoscopy was anticipated pending obtaining medical records from [facility] or [facility] in [place], [place] from which she has recently been treated. I was called this morning by Dr. Lester noting she had a rather profound hematochezia for which transfusion therapy had been initiated. A plan for immediate endoscopic evaluation was planned on that basis. Transfusion was initiated already. Upon appearance to her room in the Intensive Care Unit (she was transferred from the [facility]), she is adamantly refusing any intervention whatsoever. She says she "wants to " and has a DNI and do not resuscitate order already. Though the patient did not initially wished us to discuss with her acutely, I did speak with him at [phone]. Notably, her is in [place], [place], which is more than an hour away and currently we are experiencing a severe weather event and travel is quite impossible actually specifically this morning. He was able to provide useful information; this included surgery that she had at [facility] in [place] approximately three years ago, which did involve an ileostomy and some level of colectomy. She subsequently required drainage for what sounds like an unexpected large abscess possibly of the pelvis. He knows of no prior history of gynecologic malignancy as we had wondered nor did she have any aortic intervention that he is aware of. PHYSICAL EXAMINATION: GENERAL: The patient is alert and oriented. She is able to name the date and her acute situation. She is adamant that she does not want intervention of any sort, specifically Electronically Signed By: BJ VELASQUEZ MD 04/22/23 0948 PATIENT NAME: YANELIS RAY CONSULTATION DATE OF : 48 REPORT #: [id number] PHYSICIAN: BJ VELASQUEZ MD PCP: OBIE ALVAREZ REPORT IS CONFIDENTIAL AND NOT TO BE RELEASED WITHOUT AUTHORIZATION [facility] [address], [place] [address] Signed no surgery or endoscopic evaluation. NECK: Her trachea is midline. SKIN: Skin is slightly mottled in the lower extremities. Dressings are in place of her lower legs. ABDOMEN: Nondistended and soft and without focal tenderness. The patient with reluctance allowed for rolling her side by the nurses and digital examination. She has a very capacious anorectal area and essentially no sphincter tone whatsoever. I do not feel any solid stool. She had copious clots and dark mixed with light red blood. Hematocrit at 0100 was 21.1 and blood was initiated soon thereafter. A repeat hematocrit has not been obtained at this time. ASSESSMENT: The patient has profound gastrointestinal bleed, more likely a lower bleed. She has no prior aortic surgery and no palpable aortic aneurysm or anything to suggest an aortoenteric fistula, though the level of bleeding is reminiscent of that. I had been called in anticipating to do emergency endoscopic evaluation, possibly to include upper endoscopy and lower endoscopy, however, the patient adamantly refuses any intervention of that type. I did discuss with her , Anuj in great detail the gravity of the situation, he understands it fully. He is supportive of her decision to avoid further intervention. The patient appears to be of sound mind and does answer appropriately as to questions of understanding of her situation. She says she "believes in heaven and believes in God and is ready to leave." She does not want to be suffering anymore. I reviewed all this with her who abides by her wishes. He will be kept apprised of her progress or her decline. At present, she is essentially refusing all interventions, but efforts at maintaining comfort and dignity are of paramount interest whatever she decides she will allow. I will be standing by to assist as necessary. I have reviewed this and counseled with Dr. Lester, the hospitalist who continues to manage her as much as she allows. MD DENNIS Amanda/ROSEMARIE /[id number] Electronically Signed By: BJ VELASQUEZ MD 04/22/23 0948 PATIENT NAME: YANELIS RAY CONSULTATION DATE OF : 48 REPORT #: [id number] PHYSICIAN: BJ VELASQUEZ MD PCP: OBIE ALVAREZ REPORT IS CONFIDENTIAL AND NOT TO BE RELEASED WITHOUT AUTHORIZATION [facility] [address] [place], [place] [address] Signed cc: Dr. Tayler Gamble MD Copies: ~ Electronically Signed By: BJ VELASQUEZ MD 04/22/23 0948 PATIENT NAME: YANELIS RAY CONSULTATION DATE OF : 48 REPORT #: [id number] PHYSICIAN: BJ VELASQUZE MD PCP: OBIE ALVAREZ REPORT IS CONFIDENTIAL AND NOT TO BE RELEASED WITHOUT AUTHORIZATION
[2023-04-24 09:01] LABS: RBC, LEUKOREDUCED 20212313985300M
[2023-04-24 09:25] LABS: IS CROSSMATCH COMPATIBLE
== END 2023-04-18 12:01 | DRG 379 ==
LOC: ED 09:08 → MS 12:15 → CCU 04-18 03:43
PROVIDERS: Emergency Medicine; Internal Medicine; ADMIT Family Medicine; ATTEND Family Medicine
PROC: 30233N1 Transfusion of Nonautologous Red Blood Cells into Peripheral Vein, Percutaneous Approach (ICD-10-PCS; principal; 2023-04-16)
DX: K92.1 Melena (principal); E11.9 Type 2 diabetes mellitus without complications; I10 Essential (primary) hypertension; Z51.5 Encounter for palliative care; Z66 Do not resuscitate; R19.7 Diarrhea, unspecified; E66.9 Obesity, unspecified; Z90.89 Acquired absence of other organs; Z90.49 Acquired absence of other specified parts of digestive tract; Z90.710 Acquired absence of both cervix and uterus; Z88.2 Allergy status to sulfonamides; Z88.8 Allergy status to other drugs, medicaments and biological substances; Z79.899 Other long term (current) drug therapy; Z79.82 Long term (current) use of aspirin; Z79.4 Long term (current) use of insulin; Z79.890 Hormone replacement therapy; Z68.32 Body mass index [BMI] 32.0-32.9, adult
CPT/HCPCS: 36415; 36430; 80053; 83735; 84100; 85025; 85610; 85730; 86850; 86900; 86901; 86922; 87070; 87077; 87186; 87493; 96360; 97163; 97167; 97530; 99285-25; A9270; C9113; J1170; J1815; J2060; J2405; J3010; J7040; J7121; P9016